=== PATIENT | female | born 1965 | race Caucasian/White ===

== ENCOUNTER → 2019-07-05 07:49 | Outpatient (BNVA) | payer MEDICARE, MEDICAID, SELFPAY | PROVIDERS: PCP Family Medicine; Visit Provider Psychiatry & Neurology Psychiatry | DX: F41.1 Generalized anxiety disorder (principal); F33.2 Major depressive disorder, recurrent severe without psychotic features | CPT/HCPCS: 99204 ==

== ENCOUNTER → 2019-08-01 08:20 | Outpatient (BNVA) | payer MEDICARE, MEDICAID, SELFPAY | PROVIDERS: PCP Family Medicine; Visit Provider Psychiatry & Neurology Psychiatry | DX: F33.2 Major depressive disorder, recurrent severe without psychotic features (principal); F41.1 Generalized anxiety disorder | CPT/HCPCS: 99214 ==

== ENCOUNTER → 2019-09-11 07:38 | Outpatient (BNVA) | payer MEDICARE, MEDICAID, SELFPAY | PROVIDERS: PCP Family Medicine; Visit Provider Psychiatry & Neurology Psychiatry | DX: F33.2 Major depressive disorder, recurrent severe without psychotic features (principal); F41.1 Generalized anxiety disorder | CPT/HCPCS: 99214 ==

== ENCOUNTER → 2019-10-16 08:22 | Outpatient (BNVA) | payer MEDICARE, MEDICAID, SELFPAY | PROVIDERS: PCP Family Medicine; Visit Provider Psychiatry & Neurology Psychiatry | DX: F33.2 Major depressive disorder, recurrent severe without psychotic features (principal); F41.1 Generalized anxiety disorder | CPT/HCPCS: 99213 ==

== ENCOUNTER → 2019-12-12 07:48 | Outpatient (BNVA) | payer MEDICARE, MEDICAID, SELFPAY | PROVIDERS: PCP Family Medicine; Visit Provider Psychiatry & Neurology Psychiatry | DX: F33.2 Major depressive disorder, recurrent severe without psychotic features (principal); F41.1 Generalized anxiety disorder | CPT/HCPCS: 99214 ==

== ENCOUNTER → 2020-01-23 07:54 | Outpatient (BNVA) | payer MEDICARE, MEDICAID, SELFPAY | PROVIDERS: PCP Family Medicine; Visit Provider Psychiatry & Neurology Psychiatry | DX: F33.2 Major depressive disorder, recurrent severe without psychotic features (principal); F41.1 Generalized anxiety disorder | CPT/HCPCS: 99213 ==

== ENCOUNTER → 2020-04-12 07:59 | Outpatient (BNVA) | payer MEDICARE, MEDICAID, SELFPAY | PROVIDERS: PCP Family Medicine; Visit Provider Psychiatry & Neurology Psychiatry | DX: F33.2 Major depressive disorder, recurrent severe without psychotic features (principal); F41.1 Generalized anxiety disorder | CPT/HCPCS: 99214 ==

== ENCOUNTER → 2020-07-05 08:04 | Outpatient (BNVA) | payer MEDICARE, MEDICAID, SELFPAY | PROVIDERS: PCP Family Medicine; Visit Provider Psychiatry & Neurology Psychiatry | DX: F33.2 Major depressive disorder, recurrent severe without psychotic features (principal); F41.1 Generalized anxiety disorder | CPT/HCPCS: 99213 ==

== ENCOUNTER → 2020-09-27 07:13 | Outpatient (BNVA) | payer MEDICARE, MEDICAID, SELFPAY | PROVIDERS: PCP Family Medicine; Visit Provider Psychiatry & Neurology Psychiatry | DX: F40.10 Social phobia, unspecified (principal); F33.2 Major depressive disorder, recurrent severe without psychotic features; F41.1 Generalized anxiety disorder | CPT/HCPCS: 99214 ==

== ENCOUNTER → 2021-01-21 08:14 | Outpatient (BNVA) | payer MEDICARE, MEDICAID, SELFPAY | PROVIDERS: PCP Family Medicine; Visit Provider Psychiatry & Neurology Psychiatry | DX: F40.10 Social phobia, unspecified (principal); F33.2 Major depressive disorder, recurrent severe without psychotic features; F41.1 Generalized anxiety disorder | CPT/HCPCS: 99214 ==

== ENCOUNTER → 2021-04-15 14:59 | Outpatient (BNVA) | payer MEDICARE, MEDICAID, SELFPAY | PROVIDERS: PCP Family Medicine; Visit Provider Psychiatry & Neurology Psychiatry | DX: F40.10 Social phobia, unspecified (principal); F33.2 Major depressive disorder, recurrent severe without psychotic features; F41.1 Generalized anxiety disorder | CPT/HCPCS: 99213 ==

== ENCOUNTER 2022-04-17 10:28 | Emergency (ER) | payer MEDICARE, MEDICAID, SELFPAY ==
--- NOTE | 2022-04-17 10:39 | XR_ITS ---
WS: [id number] RIGHT KNEE: 3 VIEW(S) TECHNIQUE: AP, oblique(s) and lateral. HISTORY: pain COMPARISON: None available. No fracture or dislocation. Tricompartment osteoarthritis. Slightly greater involvement of the patellofemoral junction. Marginal osteophytes in all compartments. No joint effusion. No soft tissue abnormality. XR/XR knee RT 3V* [id number] IMPRESSION: 1. Mild tricompartment osteoarthritis, greatest involving the patellofemoral c ompartment. 2. No joint effusion or fracture.
[2022-04-17 10:45] VITALS: BP 177/86; PULSE 72; RESP 16; TEMP 36.6; O2SAT 98
--- NOTE | 2022-04-17 10:56 | ED_ITS ---
HPI - Extremity Problem General: Chief complaint: Extremity Injury, Lower Stated complaint: right knee pain Time Seen by Provider: 04/17/22 10:39 Source: patient Mode of arrival: ambulatory Limitations: no limitations History of Present Illness: Patient is a 56-year-old female presents to ED today for evaluation of right knee pain over the past week. Patient also states 2 days ago she stepped down hard on her right foot and thinks she guilherme the knee . She states pain is worse with weight bearing. Denies any previous problems with her knee. She has not noticed any swelling. She has not noticed any redness or warmth to the joint. She has no calf pain. Denies lower extremity edema. She has no numbness, tingling, loss of sensation. MD Complaint: joint pain Onset (ago): day(s) Pain Consistency: constant Location: right and knee Radiation: none Relieving factors: immobilization Exacerbating factors: weight bearing and walking Associated symptoms: Reports no associated symptoms; Deny chest pain, fever(s) or rash Review of Systems Const: Denies: fever(s) Card: Denies: chest pain Resp: Denies: dyspnea Musc: Reports: joint pain (R knee); Denies: neck pain, back pain, extremity pain, extremity swelling, joint swelling, joint redness or joint warmth Skin/Breast: Denies: rash Neuro: Denies: numbness in extremities, weakness in extremities or sensory changes PFSH ED PFSH: Medical History Major depressive disorder in partial remission Psychiatric care Social History Smoking and tobacco status: never smoked Second hand smoke exposure: No Smoking risk assessment/counseling performed?: No Alcohol intake: current Alcohol intake frequency: holidays/special occasions only Alcohol type: wine Desire information about alcohol rehabilitation?: No Counseling given: No Desire information about substance/drug rehabilitation?: No Counseling given: No Current gender identity: Female Physical Exam Const: COMMON NORMALS: no acute distress, patient oriented x3, no limitations and alert GENERAL APPEARANCE: cooperative NUTRITIONAL APPEARANCE: obese ORIENTATION/CONSCIOUSNESS: Yes awake, Yes oriented to person, Yes oriented to place and Yes oriented to time Extremity: COMMON NORMALS: full ROM, capillary refill normal, no joint enlargement, no clubbing, cyanosis or edema, no calf tenderness and no pedal edema GENERAL: Yes normal exam except as noted RIGHT LOWER EXTREMITY: Yes knee joint (TTP anterior knee joint; no effusion/laxity noted) Right knee: Yes neurovascular exam (normal) Neuro: COMMON NORMALS: patient oriented x3, moves all extremities, no focal motor deficits and no sensory deficits noted SENSORIUM/ORIENTATION: Yes alert, Yes oriented to person, Yes oriented to place and Yes oriented to time Skin: COMMON NORMALS: no rashes or lesions noted GENERAL SKIN EXAM: no rashes or lesions noted TRAUMA: no lacerations or abrasions Course Vital Signs: Vital signs: Vital Signs Temperature 97.8 F 04/17/22 10:45 Pulse Rate 72 04/17/22 10:45 Respiratory Rate 16 04/17/22 10:45 Blood Pressure 177/86 04/17/22 10:45 Pulse Oximetry 98 04/17/22 10:45 Oxygen Delivery Me thod 04/17/22 10:45 MDM - Extremity (Nontraumatic) Medical Decision Making Personal interpretation of R knee XR is negative for acute fracture or other acute pathology. Degenerative changes/arthritis noted. Recommend knee bracing, rest, ice, elevation, OTC medications. Recommend follow-up with PCP in 1 to 2 weeks if symptoms do not improve. Discharge Plan Discharge Patient Disposition: Home Clinical Impression: Acute pain of right knee Condition: Stable Prescriptions: No Action cyanocobalamin (vitamin B-12) 1,000 mcg capsule 1,000 mcg PO DAILY Calcium 600 with Vitamin D3 600 mg(1,500mg) -400 unit tablet,chewable 1 tab PO DAILY bupropion HCl [Wellbutrin XL] 300 mg tablet extended release 24 hr 300 mg PO QAM Qty: 30 2RF hydroxyzine HCl 50 mg tablet 50 mg PO QID PRN (Reason: anxiety) Qty: 120 2RF topiramate 100 mg tablet 100 mg PO BID Qty: 60 2RF ibuprofen 200 mg Tablet 800 mg PO Q6H PRN (Reason: Pain) fluoxetine 20 mg/5 mL (4 mg/mL) solution 80 mg PO QAM trazodone 100 mg tablet 400 mg PO BEDTIME multivitamin Tablet 1 tab PO DAILY Discharge Orders: Discharge ED (Routine); Ordered 04/17/22 Ordered By: Jessy Goodrich Patient Instructions: Knee Pain (ED) Coding Level of Care Code ED Community Development Coordinator for Brenda Richardson
--- NOTE | 2022-04-20 13:59 | DCPLANNER ---
poultry barn manager had message to speak with patient about getting established with a primary care physician. poultry barn manager called phone number [phone], unable to speak with patient and unable to leave a voicemail due to no voicemail set up.
== END 2022-04-17 12:00 | disposition home or self-care (01) ==
PROVIDERS: Emergency Provider Physician Assistant
DX: M25.561 Pain in right knee (principal)
CPT/HCPCS: 73562; 99283; E0114